=== PATIENT | female | born 1970 | race Caucasian/White ===

== ENCOUNTER 2019-05-02 | Emergency (ER) | payer BC ==
[~2019-05-02] MED LIST: CEPHALEXIN500 MG OR; CYMBALTA30 MG OR
[2019-05-02] MEDS ORDERED: BACTROBAN TOP (15:27)
[2019-05-02] MEDS ORDERED: KEFLEX500 M1 PO (15:27)
[2019-05-02] MEDS ORDERED: BACTRIM DS1 TAB PO (15:27)
== END 2019-05-02 15:45 | disposition home or self-care (01) | DRG 603 ==
DX: L02.01 Cutaneous abscess of face (principal); L03.211 Cellulitis of face; F17.210 Nicotine dependence, cigarettes, uncomplicated

== ENCOUNTER 2020-11-16 16:48 | Emergency (ER) | payer BC ==
[~2020-11-16] VITALS: Ht 165.1 cm; Wt 62.0 kg
[~2020-11-16 16:48] MED LIST changes: +BACTRIM DS1 TAB PO; +BACTROBAN TOP; +KEFLEX500 M1 PO
[2020-11-16 17:14] LABS: HEMATOCRIT 33.1 % (37.0-47.0); HEMOGLOBIN 10.8 g/dl (12.0-16.0); IMMATURE GRANULOCYTES 0.1 % (0.0-5.0); MEAN CELL VOLUME 95.7 fL CALC (80.0-100.0); MEAN CORPUSCULAR HGB 31.2 pG CALC (26.0-32.0); MEAN CORPUSCULAR HGB CONC 32.6 g/dL CAL (32.0-36.0); NEUT# 12.18 thou/uL (2.00-7.15); RED BLOOD COUNT 3.46 mill/uL (4.20-5.60); RED CELL DISTRI WIDTH 11.2 % (11.5-15.5)
[2020-11-16 17:24] LABS: ALBUMIN 4.1 g/dL (3.2-5.0); BILIRUBIN, TOTAL 0.5 mg/dL (0.0-1.4); CREATININE 1.3 mg/dL (0.5-1.0); TOTAL PROTEIN 7.2 g/dL (6.3-8.2)
[2020-11-16 17:28] LABS: POTASSIUM 4.7 mmol/l (3.5-5.1)
[2020-11-16] MEDS ORDERED: DECADRON2 MG PO (18:22)
[2020-11-16] MEDS ORDERED: FLEXERIL5 M1 PO (18:22)
[2020-11-16] MEDS ORDERED: ZPAK PO (18:22)
[2020-11-16 19:29] VITALS: BP 98/57
== END 2020-11-16 19:29 | disposition home or self-care (01) | DRG 391 ==
LOC: ED 16:48
DX: R10.9 Unspecified abdominal pain (principal); U07.1 COVID-19; S39.012A Strain of muscle, fascia and tendon of lower back, initial encounter; E86.0 Dehydration; X50.0XXA Overexertion from strenuous movement or load, initial encounter; Y93.E9 Activity, other interior property and clothing maintenance

== ENCOUNTER 2023-05-07 08:49 | Emergency (ER) | payer BC ==
[2023-05-07] VITALS (11 sets, daily range): BP systolic 98–119; BP diastolic 56–77
[~2023-05-07] VITALS: Ht 165.1 cm; Wt 62.0 kg
[~2023-05-07 08:49] MED LIST changes: +CEPHALEXIN500 M1 PO; +DECADRON2 MG PO; +FLEXERIL5 M1 PO; +ZPAK PO
[2023-05-07] MEDS ORDERED: KETOROLAC TROMETHAMINE 15 MG/ML SDV IV ONE (09:45)
[2023-05-07] MEDS ORDERED: SODIUM CHLORIDE 0.9% 1,000 ML IV ONE ×2 (09:45→10:05)
[2023-05-07 10:00] LABS: BASO% 0.1 % (0-3); HEMATOCRIT 37.6 % (37.0-47.0); HEMOGLOBIN 12.3 g/dl (12.0-16.0); IMMATURE GRANULOCYTES 0.1 % (0.0-5.0); LYMPH% 5.2 % (15-41); MEAN CELL VOLUME 91.7 fL CALC (80.0-100.0); MEAN CORPUSCULAR HGB CONC 32.7 g/dL CAL (32.0-36.0); MONO% 9.1 % (2-13); NEUT# 8.65 thou/uL (2.00-7.15); NEUT% 85.5 % (42-76); RED BLOOD COUNT 4.1 mill/uL (4.20-5.60); RED CELL DISTRI WIDTH 12.6 % (11.5-15.5)
[2023-05-07 10:21] LABS: ALBUMIN 4.3 g/dL (3.2-5.0); CREATININE 1.2 mg/dL (0.5-1.0); TOTAL PROTEIN 7.6 g/dL (6.3-8.2)
[2023-05-07 10:33] LABS: POTASSIUM 4.4 mmol/l (3.5-5.1)
[2023-05-07 10:38] LABS: BILIRUBIN, TOTAL 0.8 mg/dL (0.02-1.3)
[2023-05-07 11:59] LABS: URINE BILIRUBIN - DIPSTICK Negative (NEGATIVE); URINE BLOOD DIPSTICK Trace-intact (NEGATIVE); URINE COLOR Yellow; URINE GLUCOSE - DIPSTICK Negative (NEGATIVE); URINE KETONE 40 mg/dL (NEGATIVE); URINE LEUK ESTERASE Negative (NEGATIVE); URINE NITRITE - DIPSTICK Negative (Negative); URINE PROTEIN - DIPSTICK Trace mg/dL (NEG-TRACE); URINE SPECIFIC GRAVITY 1.015; URINE UROBILINOGEN - DIPSTICK 0.2 E.U./dL (0.2)
== END 2023-05-07 12:32 | disposition home or self-care (01) | DRG 864 ==
LOC: ED 08:49
PROVIDERS: Emergency Medicine
DX: R50.9 Fever, unspecified (principal); I13.0 Hypertensive heart and chronic kidney disease with heart failure and stage 1 through stage 4 chronic kidney disease, or unspecified chronic kidney disease; I50.9 Heart failure, unspecified; N18.9 Chronic kidney disease, unspecified; F17.200 Nicotine dependence, unspecified, uncomplicated; Z20.822 Contact with and (suspected) exposure to COVID-19

== ENCOUNTER 2024-04-18 10:13 | Emergency (ER) | payer OTHER, BC ==
[~2024-04-18] VITALS: Ht 165.1 cm; Wt 61.6 kg
[~2024-04-18 10:13] MED LIST changes: +LISINOPRIL20 M1 PO; +NEOMYCIN/POLYMY1 SOL AD; +TOPROL XL50 MG PO
[2024-04-18] MEDS ORDERED: POVIDONE IODINE 0.5 OZ/BTL TOP STA (10:25)
[2024-04-18] MEDS ORDERED: Diph, Acellular Pertussis, Tet 0.5 ML/VIAL (Tdap) SDV IM STA (10:25)
[2024-04-18] MEDS ORDERED: LIDOcaine HCl 1% (Local Anesth.) 20 ML VIAL STI STA (10:26)
[2024-04-18 10:37] VITALS: BP 120/73
[2024-04-18 11:00] VITALS: BP 123/80
[2024-04-18] MEDS ORDERED: METRONIDAZOLE500 MG PO (11:34)
[2024-04-18] MEDS ORDERED: DOXYCYCLINE100 MG PO (11:34)
== END 2024-04-18 11:59 | disposition home or self-care (01) | DRG 605 ==
LOC: ED 10:13
PROC: 0HQLXZZ Repair Left Lower Leg Skin, External Approach (ICD-10-PCS; principal; 2024-04-18)
DX: S81.052A Open bite, left knee, initial encounter (principal); I11.0 Hypertensive heart disease with heart failure; I50.9 Heart failure, unspecified; F17.200 Nicotine dependence, unspecified, uncomplicated; W54.0XXA Bitten by dog, initial encounter; Y93.K9 Activity, other involving animal care; Y92.89 Other specified places as the place of occurrence of the external cause; Y99.0 Civilian activity done for income or pay
CPT/HCPCS: 90715

== ENCOUNTER 2024-05-01 08:01 | Emergency (ER) | payer BC ==
[~2024-05-01] VITALS: Ht 165.1 cm; Wt 61.2 kg
[~2024-05-01 08:01] MED LIST changes: +DOXYCYCLINE100 MG PO; +METRONIDAZOLE500 MG PO
== END 2024-05-01 08:30 | disposition home or self-care (01) | DRG 950 ==
LOC: ED 08:01
DX: S81.852D Open bite, left lower leg, subsequent encounter (principal); W54.0XXD Bitten by dog, subsequent encounter; I11.0 Hypertensive heart disease with heart failure; I50.9 Heart failure, unspecified; F17.200 Nicotine dependence, unspecified, uncomplicated